=== PATIENT | female | born 1970 | race Caucasian/White ===

== ENCOUNTER 2018-04-26 18:44 | Inpatient (IN) | payer MEDICARE, MEDICAID ==
[~2018-04-26] VITALS: Ht 170.2 cm; Wt 96.4 kg
[~2018-04-26 18:44] MED LIST: ATENOLOL25 MG PO; ATIVAN1 MG PO; CIPRO500 MG OR; COMBIVENT IN; CYCLOBENZAPR10 MG PO; DILANTIN100 MG PO; FLEXERIL OR; FLOVENT HFA110 MCG IN; HYDROCHLOROT25 MG PO; HYDROCHLOROT50 MG PO; LAMICTAL200 M1 PO; LORTAB 5 OR; LYRICA75 MG PO; NAPROSYN500 MG OR; NEURONTIN300 MG PO; NO HOME MEDS; OXYCODONE10 M1 PO; OXYCONTIN PO; OXYCONTIN40 MG PO; PROAIR HFA IN; STOOL SOFTENER100 MG PO; ZITHROMAX500 MG OR; ZOLPIDEM10 M1 PO
[2018-04-26 19:35] LABS: URINE BLOOD DIPSTICK NEGATIVE (NEGATIVE); URINE COLOR YELLOW; URINE GLUCOSE - DIPSTICK NEGATIVE (NEGATIVE); URINE KETONE NEGATIVE (NEGATIVE); URINE LEUK ESTERASE NEGATIVE (NEGATIVE); URINE NITRITE - DIPSTICK NEGATIVE (Negative); URINE PH 5.5 (4.5-8.0); URINE PROTEIN - DIPSTICK 100 mg/dL (NEG-TRACE); URINE SPECIFIC GRAVITY >=1.030
[2018-04-26 19:39] LABS: BARBITURATES NEGATIVE (NEGATIVE); COCAINE NEGATIVE (NEGATIVE); METHADONE NEGATIVE (NEGATIVE); TETRAHYDROCANNABIONOL NEGATIVE (NEGATIVE); TRICYLIC ANTIDEPRESSANTS NEGATIVE (NEGATIVE)
[2018-04-26 19:40] LABS: OXCYCODONE POSITIVE (NEGATIVE)
[2018-04-26 19:41] LABS: URINE CLARITY CLEAR
[2018-04-26 19:43] LABS: URINE BILIRUBIN - DIPSTICK NEGATIVE (NEGATIVE)
[2018-04-26 19:44] LABS: HEMATOCRIT 48.1 % (37.0-47.0); HEMOGLOBIN 15.9 g/dl (12.0-16.0); IMMATURE GRANULOCYTES 0.5 % (0.0-1.0); MEAN CELL VOLUME 89.9 fL CALC (80.0-100.0); MEAN CORPUSCULAR HGB 29.7 pG CALC (26.0-32.0); MEAN CORPUSCULAR HGB CONC 33.1 g/L CALC (32.0-36.0); NEUT# 7.94 thou/uL (2.00-7.15); RED BLOOD COUNT 5.35 mill/uL (4.20-5.60); RED CELL DISTRI WIDTH 12.9 % (11.5-15.5)
[2018-04-26 19:59] LABS: ALBUMIN 4.5 g/dL (3.2-5.0); ALKALINE PHOSPHATASE 130 u/l (38-126); ANION GAP 17 (6-22 (CALC)); BILIRUBIN, TOTAL 0.6 mg/dL (0.0-1.4); BUN 16 mg/dL (7-17); BUN/CREATININE RATIO 22 (12-20 (CALC)); CARBON DIOXIDE 26 mmol/l (22-30); CHLORIDE 111 mmol/l (95-108); CREATININE 0.7 mg/dL (0.5-1.0); GFR > 60 ML/MIN (>=60 (CALC)); GFR FOR AFR.AMER. > 60 ML/MIN (>=60 (CALC)); MAGNESIUM 2.1 mg/dL (1.6-2.3); SGOT/AST 53 u/l (14-36); SGPT/ALT 76 u/l (9-52); SODIUM 151 mmol/l (137-146); TOTAL PROTEIN 7.7 g/dL (6.3-8.2)
[2018-04-26 20:04] LABS: ETHYL ALCOHOL 0 mg/dl (0-30)
[2018-04-26 20:15] LABS: URINE AMORPH SEDIMENT MANY hpf (NONE-FEW); URINE BACTERIA MODERATE hpf; URINE MUCUS FEW hpf (NONE-FEW); URINE RBC 0-2 RBC/hpf (0-5); URINE WBC 0-2 WBC/hpf (0-5)
[2018-04-26 23:00] VITALS: BP 149/85
[2018-04-26 23:15] VITALS: BP 136/94
[2018-04-26 23:30] VITALS: BP 138/82
[2018-04-26 23:45] VITALS: BP 109/71
[2018-04-27] VITALS (8 sets, daily range): BP systolic 109–160; BP diastolic 72–90
[2018-04-27] MEDS ORDERED: CLEOCIN150 MG PO (10:09)
[2018-04-27] MEDS ORDERED: XANAX0.5 MG PO (10:14)
== END 2018-04-27 11:24 | DRG 917 ==
LOC: ED 18:44 → ED-I 19:08 → ED 19:08 → ED-I 21:04 → ED 21:20 → ICU 21:21
PROVIDERS: Emergency Medicine; ADMIT Internal Medicine; ATTEND Internal Medicine
DX: T40.2X1A Poisoning by other opioids, accidental (unintentional), initial encounter (principal); J69.0 Pneumonitis due to inhalation of food and vomit; T42.4X1A Poisoning by benzodiazepines, accidental (unintentional), initial encounter; E11.9 Type 2 diabetes mellitus without complications; F32.9 Major depressive disorder, single episode, unspecified; F17.210 Nicotine dependence, cigarettes, uncomplicated; G89.4 Chronic pain syndrome; F41.9 Anxiety disorder, unspecified; G40.909 Epilepsy, unspecified, not intractable, without status epilepticus; F15.10 Other stimulant abuse, uncomplicated; F10.10 Alcohol abuse, uncomplicated

== ENCOUNTER 2019-03-10 01:19 | Emergency (ER) | payer MEDICARE, MEDICAID ==
[~2019-03-10] VITALS: Ht 170.2 cm; Wt 100.0 kg
[~2019-03-10 01:19] MED LIST changes: +CLEOCIN150 MG PO; +XANAX0.5 MG PO
[2019-03-10] MEDS ORDERED: AMOXICILLIN500 MG PO (03:28)
[2019-03-10] MEDS ORDERED: ULTRAM50 M1 PO (03:29)
[2019-03-10 04:00] VITALS: BP 147/87
== END 2019-03-10 04:00 | disposition home or self-care (01) ==
LOC: ED 01:19
PROC: 0HQ1XZZ Repair Face Skin, External Approach (ICD-10-PCS; principal; 2019-03-10)
DX: S01.81XA Laceration without foreign body of other part of head, initial encounter (principal); R51 Headache; M54.2 Cervicalgia; Y04.8XXA Assault by other bodily force, initial encounter; Y92.007 Garden or yard of unspecified non-institutional (private) residence as the place of occurrence of the external cause